=== PATIENT | female | born 1970 | race Hispanic/Latino ===

== ENCOUNTER → 2024-05-23 | Outpatient (CLI) | payer OTHER ==
--- NOTE | 2024-05-23 17:49 | HMCIMG ---
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 FINDINGS: There is disc desiccation L4-5 and L5-S1, there is mild interspace narrowing at L5-S1. Remaining interspaces are preserved. Vertebral body alignment is normal. There are no focal osseous lesions. There is a focal disc herniation posteriorly and to the left at the L5-S1 level. There is posterior displacement of the left S1 nerve root. There is only mild narrowing of the central canal. Neural foramina appear preserved. Remaining interspaces appear unremarkable. There are mild degenerative changes in the facets. There are no other disc herniations. There is no spinal stenosis. Neural foramina are widely patent throughout. IMPRESSION: 1. Focal disc herniation posteriorly and to the left at the L5-S1 level, with posterior displacement of the S1 root. 2. No significant midline stenosis. 3. Mild degenerative changes, the exam is otherwise unremarkable.
== END | disposition home or self-care (01) ==
LOC: RAH 15:17
PROVIDERS: ATTEND Nurse Practitioner Family
DX: M51.379 Other intervertebral disc degeneration, lumbosacral region without mention of lumbar back pain or lower extremity pain (principal); M51.27 Other intervertebral disc displacement, lumbosacral region; M48.07 Spinal stenosis, lumbosacral region; M47.897 Other spondylosis, lumbosacral region; M46.90 Unspecified inflammatory spondylopathy, site unspecified; M47.817 Spondylosis without myelopathy or radiculopathy, lumbosacral region
CPT/HCPCS: 72148